=== PATIENT | female | born 2005 | race Two or more races ===

== ENCOUNTER 2025-05-21 22:25 | Emergency (ER) | payer BC, OTHER, SELFPAY ==
--- OUTSIDE RECORDS SUMMARY | 2025-05-12 19:28 | XMS_ITS | Encounter Summary ---
Author Organization [facility] tem Address [facility] [id number] [address] [place] [address] Care Team Providers Care Janitorial Account Manager Name Role Phone Nini Ahmadi MD Primary Care Provider [phone] Reason for Referral * Consultation (Routine) - Pending ReviewSpecialtyDiagnoses / ProceduresReferred By ContactReferred To ContactUrology Diagnoses Dysuria Aggie Benitez APRN-CNP [address] [place] [address] Phone: tel: fax: Dave Stephens MD [address] [place] [address] Phone: tel: fax: Referral IDStatusReasonStart DateExpiration DateVisits RequestedVisits [id number] Review Specialty Services Required Reason for Visit * ReasonCommentsPainful Urination Encounter Details DateTypeDepartmentCare Team (Latest Contact Info)Etqoihnzfxu33/20/2025 7:28 PM EDT - 05/12/2025 9:41 PM EDTEmergency [facility] [address] [place] [address] Gayle Underwood MD [address] [place] [address] Dysuria (Primary Dx) Discharge Disposition: Home Social History Tobacco UseTypesPacks/DayYears UsedDateSmoking Tobacco: NeverSmokeless Tobacco: NeverAlcohol UseStandard Drinks/WeekCommentsNo0 (1 standard drink = 0.6 oz pure alcohol)ChildcareAnswerDate KhrrlajkTvbvmndhaIdtuwkt70/10/2019EmploymentAnswer Date UdekwjwvNmknujouejHlhxyxv01/10/2019Hunger ScreeningAnswerDate Recorded Within the past 12 months we worried whether our food would run out before we got money to buy more.Never True05/12/2025Within the past 12 months the food we bought just didn't last and we didn't have money to get more.Never True 05/12/2025Purpose - LifeAnswerDate RecordedPurpose and direction in lifeUnknown 1CommentsNoSex and Gender InformationValueDate RecordedSex Assigned at BirthNot on fileLegal YzsQycgns62/04/2015 12:14 PM EDTGender IdentityNot on fileSexual OrientationNot on filedocumented as of this encounter Last Filed Vital Signs Vital SignReadingTime TakenCommentsBlood Xbjapxgo789/8705/12/2025 9:30 PM EDT Dbsad00238/20/2025 9:30 PM BAYSjzjwifbzph15.2 ??C (98.9 ??F)05/12/2025 6:17 PM EDTRespiratory Qllq9516 9:30 PM EDTOxygen Wilzlhersd09%05/12/2025 9:30 PM EDTInhaled Oxygen Concentration--Aaomxf28.5 kg (215 lb)05/12/2025 6:17 PM EDT Huohcp643 cm (5' 3 )05/12/2025 6:17 PM EDTBody Mass Index38.0905/12/2025 6:17 PM EDTdocumented in this encounter Discharge Instructions * Discharge Instructions* MARIJA Pinto - 05/12/2025 9:24 PM EDT Thank you for choosing us for your medical care. We know you have a choice, and we appreciate you choosing us for your medical concerns! You may receive a survey from the hospital about your visit. We very much appreciate your comments and concerns. Please read all medication insert instructions and side effects when dispensed by the pharmacy. Every medication has side effects, and you may experience any of them. Please call the emergency room with any questions or concerns you have. Please call your doctor for outpatient follow up and recommendations. The emergency room cannot replace ongoing care, and it is important for your personal physician to evaluate you and monitor your health. Return to the ER for increased pain, fever > 101.5, vomiting twice, or any concern you deem emergent. Aggie Benitez CNP documented in this encounter ED Notes * MARIJA Pinto - 05/12/2025 7:43 PM EDT Images from the original note were not included. [facility] - EMERGENCY Pt Name: Cheryl Cardona Birthdate: 2005 Chief Complaint: Chief Complaint Patient presents with Painful Urination History of Present Illness: Cheryl Cardona is a 19-year-old female that presents to ED with complaint of burning with urination. Patient states she has noticed an odor hand burning to her urine today. She also reports lower back and lower abdominal pain. Denies any hematuria. Denies any history of kidney stones. Denies any concerns for STIs. History provided by: Patient official court interpreter used: No Past Medical History: History reviewed. No pertinent past medical history. Past Surgical History: History reviewed. No pertinent surgical history. Family History: Family History Problem Relation Age of Onset No Known Problems Mother No Known Problems Father Social History: Social History Socioeconomic History Marital status: Tobacco Use Smoking status: Never Smokeless tobacco: Never Substance and Sexual Activity Alcohol use: No Drug use: No Sexual activity: Never Social Drivers of Health Food Insecurity: No Food Insecurity (05/12/2025) Hunger Screening Food Insecurity - Worry: Never True Food Insecurity - Inability: Never True Review of Systems: Review of Systems Constitutional: Negative for chills and fever. HENT: Negative for ear pain. Eyes: Negative for pain. Respiratory: Negative for shortness of breath. Cardiovascular: Negative for chest pain/discomfort. Gastrointestinal: Positive for abdominal pain. Negative for diarrhea, nausea and vomiting. Genitourinary: Positive for dysuria and flank pain. Musculoskeletal: Negative for back pain. Skin: Negative for rash. Neurological: Negative for headaches. Psychiatric/Behavioral: Negative for sleep disturbance and suicidal ideas. Physical Exam: ED Triage Vitals [05/12/251816] Temp Heart Rate Resp BP SpO2 37.2 ??C (98.9 ??F) (!) 112 18 (!) 114/91 100 % Temp Source Heart Rate Source Patient Position BP Location FiO2 (%) Oral -- Sitting Left arm -- Vitals: 05/12/251816 BP: (!) 114/91 Temp: 37.2 ??C (98.9 ??F) TempSrc: Oral Pulse: (!) 112 Resp: 18 SpO2: 100% MAP (mmHg): 100 Height: 160 cm (5' 3 ) Weight: 97.5 kg (215 lb) Physical Exam Vitals reviewed. HENT: Head: Normocephalic and atraumatic. Eyes: Conjunctiva/sclera: Conjunctivae normal. Cardiovascular: Rate and Rhythm: Normal rate. Pulmonary: Effort: Pulmonary effort is normal. Breath sounds: Normal breath sounds. Abdominal: General: There is no distension. Palpations: Abdomen is soft. Musculoskeletal: General: Normal range of motion. Cervical back: Normal range of motion and neck supple. Skin: General: Skin is warm and dry. Neurological: General: No focal deficit present. Mental Status: She is alert and oriented to person, place, and time. GCS: GCS eye subscore is 4. GCS verbal subscore is 5. GCS motor subscore is 6. Procedure: Procedures Re-evaluation: 2124 - labs, urine and CT are unremarkable for any acute finding. I spoke to patient and she is agreeable to follow up to family doctor. Given strict return criteria. Medical Decision Making Plan of care - labs, urine, CT to rule out kidney stone Amount and/or Complexity of Data Reviewed Labs: ordered. Decision-making details documented in ED Course. Radiology: ordered. Decision-making details documented in ED Course. ED Course: ED Course as of 05/12/252126 Mon May 12, 20252031 Patient is 19 years old female presented for urinary frequency and dysuria evaluation for the last month. Patient stated the symptoms associated with left flank pain. Patient denied hematuria, nausea, vomiting, fever, chills. Physical examination: Suprapubic tenderness [NM] ED Course User Index [NM] Gayle Underwood MD Clinical Impressions as of 05/12/252126 Dysuria . ED Disposition ED Disposition Discharge Date/Time MonMay 12, 2025 9:24 PM Comment At the time of discharge, the plan has been discussed with the patient regarding the diagnosis and prognosis. All questions have been answered. Verbal discharge instructions were discussed with the patient. The patient has been advised to follow up w ith their Primary Care Provider within 1 week. The patient was also instructed to return to the ED if their symptoms change, worsen, new symptoms arise or if they have any additional concerns. Shared/Split Visit 20:31 EDT Krupa Youngblood (scribe), scribed for and in the presence of: Gayle Underwood MD who performed the above service. I, Dr. Kj MD personally performed a eong-fr-dktu diagnostic evaluation on this patient. I personally made and approved the management plan for this patient and take responsibility for the patientmanagement. Additional Notes/Findings: Cheryl Cardona is a 19 y.o. female presenting to the ED for chief complaint of painful urination. She mentions that she has mild back pain, frequent urination, painful urination, and some abdominal pain. Her symptoms have been going on for a month. Exam findings as follows: Constitutional: Awake and alert HENT: Head normocephalic and atraumatic Eyes: conjunctiva unremarkable Cardiovascular: Heart rate regular Pulmonary: Easy work of breathing, speaking full sentences. Suprapubic tenderness Abdominal: Flat and non-distended Skin: Warm and dry Musculoskeletal: Moving all extremities spontaneously Neurological: alert and oriented 3 Please note that portions of this note were completed with a voice recognition program. Efforts were made to edit the dictations but occasionally words are mis-transcribed. MARIJA Pinto 05/12/251943 Krupa Fuller 05/12/252032 MARIJA Pinto 05/12/252126 * Ghazalahayden Matt - 05/12/2025 6:17 PM EDT Pt state she is having lower abdominal pain and lower back pain. She states it sainz when she urinates, and she has noticed an odor to her urine. documented in this encounter Plan of Treatment NameTypePriorityAssociated DiagnosesOrder ScheduleAmbulatory referral to Urology (Non-[facility])Outpatient ReferralRoutine Dysuria 1 Occurrences starting 05/12/2025 until 05/12/2026documented as of this encounter Procedures Procedure NamePriorityDate/TimeAssociated DiagnosisCommentsCT ABDOMEN AND PELVIS WO UZVLHXHO76/20/2025 7:57 PM EDT CBC WITH AUTO XDHUWPOEVSCEQTRR04/20/2025 7:49 PM EDT COMPREHENSIVE METABOLIC ASYAWERDT22/20/2025 7:49 PM EDT ER EXTRA URINE BAHVOBHCTJ72/20/2025 7:41 PM EDT ER EXTRA URINE KZFZDMCKUAI86/20/2025 7:41 PM EDT ER EXTRA FHVIRMMKL89/20/2025 7:41 PM EDT POCT , URINE (NUCG)Ekiuajx4805/12/2025 7:36 PM EDT POCT NURSING URINE MACROSCOPIC TXNffgeei51/20/2025 7:35 PM EDT documented in this encounter Results * CT abdomen and pelvis without contrast (05/12/2025 7:57 PM EDT)Anatomical RegionLateralityModalityBody, Abdomen, Body CoveraN/AComputed Tomography Specimen (Source)Anatomical Location / LateralityCollection Method / Volume Collection TimeReceived Time05/12/2025 9:06 PM EDT Narrative 05/12/2025 9:10 PM EDT History: ??r/o kidney stone. Exam/Technique: CT images of abdomen and pelvis were obtained without IV contrast. ??CT does automated exposure control was utilized. All CT scans at this facility use dose modulation, iterative reconstruction, and/or weight based dosing when appropriate to reduce radiation dose to as low as reasonably achievable. Comparison: ??None is available Findings: ??Lung bases are grossly unremarkable Both kidneys are of adequate and similar size and texture with no gross hydronephrosis or renal cyst. Urinary bladder is decompressed. Uterus is grossly unremarkable. There is coarse heterogeneous texture of the liver parenchyma likely due to diffuse hepatic steatosis. Gallbladder is partially contracted. Spleen, pancreas and adrenal glands are unremarkable. Appendix, small and large bowel loops are unremarkable. There is no free peritoneal air or fluid. There are few nonspecific mesenteric lymph nodes likely on reactive basis. There is focal 7 mm sclerotic density of the right sacral alar favored to represent bone island. However, other etiology cannot be entirely excluded. IMPRESSION: ?? There is no gross acute intra-abdominal or pelvic process. Moderate hepatic steatosis. No hydronephrosis or dense renal stones Finalized by Eric Vaughan MD on 05/12/2025 9:10 PM Procedure Note Eric Vaughan MD - 05/12/2025 History: r/o kidney stone. Exam/Technique: CT images of abdomen and pelvis were obtained without IV contrast. CT does automated exposure control was utilized. All CT scansat this facility use dose modulation, iterative reconstruction, and/orweight based dosing when appropriate to reduce radiation dose to as low as reasonably achievable. Comparison: None is available Findings: Lung bases are grossly unremarkable Both kidneys are of adequate and similar size and texture with no gross hydronephrosis or renal cyst. Urinary bladder is decompressed. Uterus is grossly unremarkable. There is coarse heterogeneous texture of the liver parenchyma likely dueto diffuse hepatic steatosis. Gallbladder is partially contracted. Spleen,pancreas and adrenal glands are unremarkable. Appendix, small and large bowel loops are unremarkable. There is no free peritoneal air or fluid. There are few nonspecific mesenteric lymph nodeslikely on reactive basis. There is focal 7 mm sclerotic density of the right sacral alar favored to represent bone island. However, other etiology cannot be entirelyexcluded. IMPRESSION: There is no gross acute intra-abdominal or pelvic process. Moderate hepatic steatosis. No hydronephrosis or dense renal stones Finalized by Eric Vaughan MD on 05/12/2025 9:10 PM Authorizing ProviderResult TypeResult StatusAmber Benitez DRIER BELT CONVEYOR-CNPIMG CT ORDERABLESFinal Result * (ABNORMAL) Comprehensive metabolic panel (05/12/2025 7:49 PM EDT)Component ValueRef RangeTest MethodAnalysis TimePerformed AtPathologist SignatureSODIUM 641591 - 146 mmol/L1 8:22 PM [facility] POTASSIUM3.83.5 - 5.0 mmol/L1 8:22 PM EDTR[facility]OSPITALCHLORIDE10498 - 109 mmol/L1 8:22 PM EDTR[facility]OSPITALCARBON BZHNPGA4761 - 32 mmol/L1 8:22 PM EDTR[facility]ITALANION DJT562 - 15 mmol/L1 8:22 PM EDT [facility]ITALBLOOD UREA ADWVREIF72 - 23 mg/dL05/12/2025 8:22 PM EDTRIHE[facility]ITAN HOSPITALCREATININE0.670.40 - 1.00 mg/dL 05/12/2025 8:22 PM [facility] HOSPITALComment:METHOD TRACEABLE TO IDMS KSHVTIRMIGGEZVW282(H)65 - 99 mg/dL05/12/2025 8:22 PM EDT [facility]ITALCALCIUM9.08.5 - 10.5 mg/dL05/12/2025 8:22 PM [facility]OS[facility]ITALTOTAL PROTEIN7.86.0 - 8.0 g/dL 05/12/2025 8:22 PM EDTR[facility]HE[facility]AN HOSPITALALBUMIN4.33.2 - 5.3 g/dL05/12/2025 8:22 PM [facility] HOSPITALALKALINE OVYMJKBDIWM8385 - 130 U/L1 8:22 PM [facility]ITALAST32<=41 U/L1 8:22 PM [facility] ALT51(H)<=31 U/L1 8:22 PM [facility] BILIRUBIN,TOTAL0.30.3 - 1.2 mg/dL05/12/2025 8:22 PM [facility] GALION HOSPITALEGFR Non-Race Dependent>90>=60 ml/min/1.73sq.m1 8:22 PM [facility] HOSPITALComment: eGFR not reported due to non-numeric value for Creatinine. Reported eGFR is based on the CKD-EPI 2020 equation that does not use a race coefficient. Specimen (Source)Anatomical Location / LateralityCollection Method / Volume Collection TimeReceived TimeBloodVenous blood / UnknownVenipuncture / Unknown 05/12/2025 7:49 PM EDT1 7:58 PM EDT Narrative Authorizing ProviderResult TypeResult StatusAmber Emmanuel DRIER BELT CONVEYOR-CNPLAB BLOOD ORDERABLESFinal ResultPerforming OrganizationAddressCity/State/ZIP CodePhone Number [facility] [address] * (ABNORMAL) CBC auto differential (05/12/2025 7:49 PM EDT)ComponentValueRef RangeTest MethodAnalysis TimePerformed AtPathologist SignatureWBC9.34 - 11 x10E9/L1 8:05 PM [facility]AL[facility] HOSPITALRBC Count4.48 3.8 - 5.2 X10E12/L1 8:05 PM [facility] Mgeixmqaeg67.811.7 - 15.5 g/dL05/12/2025 8:05 PM [facility]AL[facility] HOSPITALHematocrit38.235 - 47 %05/12/2025 8:05 PM [facility] HOSPITALMCV8580 - 100 fL05/12/2025 8:05 PM [facility] HOSPITALMCH28.527 - 34 pg05/12/2025 8:05 PM [facility] HOSPITALMCHC33.532 - 36 g/dL05/12/2025 8:05 PM [facility]AL[facility] HOSPITALRDW13.011.5 - 15 %05/12/2025 8:05 PM EDTRIHEALTH GOOD SAMARITAN HOSPITALPlatelet Syvmy658300 - 450 X10E9/L1 8:05 PM EDT [facility]ITALMPV9.17 - 12 fL05/12/2025 8:05 PM EDT [facility]ITALNeutrophils %72.5%05/12/2025 8:05 PM EDT [facility]ITALLymphocytes %19.1%05/12/2025 8:05 PM EDT [facility]ITALMonocytes %6.6%05/12/2025 8:05 PM EDT [facility] HOSPITALEosinophils %1.1%05/12/2025 8:05 PM EDT [facility]ITALBasophils %0.7%05/12/2025 8:05 PM EDT [facility]ITALNeutrophils Absolute (A)6.7(H)1.5 - 6.6 10*3/uL05/12/2025 8:05 PM EDTRIHEALTH GOOD SAMARITAN HOSPITALLymphocytes Absolute1.81.0 - 3.5 10*3/uL05/12/2025 8:05 PM EDMER[facility] HOSPITALMonocytes Absolute0.60.0 - 0.9 10*3/uL05/12/2025 8:05 PM EDTRIHEALTH GOOD SAMARITAN HOSPITALEosinophils Absolute0.10.0 - 0.4 10*3/uL05/12/2025 8:05 PM EDTPADENA REGIONAL MEDICAL CENTERBasophils Absolute0.10.0 - 0.2 10*3/uL05/12/2025 8:05 PM EDTRIHEALTH GOOD SAMARITAN HOSPITALDifferential TypeAUTOMATED SHZJPPWFJOBI41/20/2025 8:05 PM [facility] SYSTEMpecimen (Source)Anatomical Location / LateralityCollection Method / VolumeCollection TimeReceived TimeBloodVenous blood / UnknownVenipuncture / Lismmjl3705/12/2025 7:49 PM EDT1 7:58 PM EDT Narrative Authorizing ProviderResult TypeResult StatusAmber Emmanuel DRIER BELT CONVEYOR-CNPLAB BLOOD ORDERABLESFinal ResultPerforming OrganizationAddressCity/State/ZIP CodePhone Number [address] [place] [address], [place] * ER EXTRA URINE MARBLE (05/12/2025 7:41 PM EDT)ComponentValueRef RangeTest MethodAnalysis TimePerformed AtPathologist SignatureExtra TubeAuto Resulted 05/12/2025 11:02 PM EDTPBrecksville [facility] (Source) Anatomical Location / LateralityCollection Method / VolumeCollection Time Received TimeUrineUrine / UnknownCollection / Cceijmv6905/12/2025 7:41 PM EDT 05/12/2025 10:07 PM EDT Narrative Authorizing ProviderResult TypeResult StatusAmber Emmanuel DRIER BELT CONVEYOR-CNPURINE ORDERABLESFinal ResultPerforming OrganizationAddressCity/State/ZIP CodePhone Number [address] [place] [address], [place] * ER EXTRA URINE CULTURE (05/12/2025 7:41 PM EDT)ComponentValueRef RangeTest MethodAnalysis TimePerformed AtPathologist SignatureExtra TubeAuto Resulted 05/12/2025 11:02 PM EDAult[facility] (Source) Anatomical Location / LateralityCollection Method / VolumeCollection Time Received TimeUrineUrine / UnknownCollection / Jhvrnga4605/12/2025 7:41 PM EDT 05/12/2025 10:07 PM EDT Narrative Authorizing ProviderResult TypeResult StatusAmber Emmanuel DRIER BELT CONVEYOR-CNPURINE ORDERABLESFinal ResultPerforming OrganizationAddressty/State/ZIP CodePhone Number [address] [place] [address], [place] * Er Extra Urine (05/12/2025 7:41 PM EDT)ComponentValueRef RangeTest Method Analysis TimePerformed AtPathologist SignatureExtra TubeAuto Resulted 05/12/2025 11:02 PM EDTPBrecksville [facility] (Source) Anatomical Location / LateralityCollection Method / VolumeCollection Time Received TimeUrineUrine / UnknownCollection / Utikdou0905/12/2025 7:41 PM EDT 05/12/2025 10:07 PM EDT Narrative Authorizing ProviderResult TypeResult StatusAmber Benitez DRIER BELT CONVEYOR-CNPURINE ORDERABLESFinal ResultPerforming OrganizationAddressCity/State/ZIP CodePhone Number [address] [place] [address], [place] * POCT , urine (05/12/2025 7:36 PM EDT)ComponentValueRef RangeTest MethodAnalysis TimePerformed AtPathologist SignaturePO Urine NegativeNegative, Jpbsjvbqbhryk01/20/2025 7:41 PM EDTPUNIVERSITY HOSPITALS BEACHWOOD MEDICAL CENTERpecimen (Source)Anatomical Location / LateralityCollection Method / VolumeCollection TimeReceived UbiyCfozp89/20/2025 7:36 PM EDT 05/12/2025 7:41 PM EDT Narrative Authorizing ProviderResult TypeResult StatusPOINT OF CARE TEST ORDERABLESFinal ResultPerforming OrganizationAddressCity/State/ZIP CodePhone Number [address] [place] [address], [place] * POCT Nursing Urine Macroscopic UA (05/12/2025 7:35 PM EDT)ComponentValueRef RangeTest MethodAnalysis TimePerformed AtPathologist SignatureVERMONT PS[facility]ATR[facility] Urine Specific Gravity1.0201.010, 1.015, 1.020, 1.0111505/12/2025 7:36 PM EDTPTRIHEALTH [facility] Urine Leukocyte EsteraseNegativeNegative 05/12/2025 7:36 PM EDTPTRIHEALTH [facility] Urine Nitrite JirdemwqZoxznyzd31/20/2025 7:36 PM EDTPTRIHEALTH [facility] Urine pH7.05.0, 6.0, 6.5, 7.0, 7.5, 8.0, 8.5, 5.510 7:36 PM EDT [facility] Urine OzondnxEfdvlsbaSipmwbjx36/20/2025 7:36 PM EDTPTRIHEALTH [facility] Urine GlucoseNegative Uzodbxfn72/20/2025 7:36 PM EDTPTRIHE[facility] Urine XthtaaeSusblelqBizonfdi90/20/2025 7:36 PM [facility] Urine Urobilinogen0.2 E.U./dL05/12/2025 7:36 PM EDTPTRIHEALTH [facility] Urine VnvhxlqvlWwiftjwwXlttvfhf99/20/2025 7:36 PM EDMEM[facility] Urine Blood/HGBNegativeNegative 05/12/2025 7:36 PM EDSELECT MEDICAL SPECIALTY HOSPITAL - CANTONpecimen (Source) Anatomical Location / LateralityCollection Method / VolumeCollection Time Received CrpuLqpti51/20/2025 7:35 PM EDT1 7:36 PM EDT Narrative Authorizing ProviderResult TypeResult StatusPOINT OF CARE TEST ORDERABLESFinal ResultPerforming OrganizationAddressCity/State/ZIP CodePhone Number [facility] [address] [place], [place] [address] documented in this encounter Visit Diagnoses Diagnosis Dysuria- Primary documented in this encounter Additional Health Concerns AssessmentNoted TimeA Body Mass Index follow-up plan has been documented for the dqlgyjt0002/22/2019 10:07 AM EDTdocumented as of this encounter Care Teams Team MemberRelationshipSpecialtyStart DateEnd Date Nini Ahmadi MD [address] [place] [address] PCP - GeneralFamily Byjlbnse38/20/25documented as of this encounter
[2025-05-21 22:31] VITALS: BP 113/70; PULSE 137; TEMP 39.4; O2SAT 98; BMI 38.1
--- NOTE | 2025-05-21 22:43 | XR_ITS ---
The [address] [address] Patient Name: GEREMIAS LOPEZ MRN: [id number] date: 2005 Sex: F Assigned Patient Location: ER Current Patient Location: ED.MAIN Accession/Order Number: [id number] Exam Date: 05/21/2025 22:51 Report Date: 05/21/2025 23:09 At the request of: RANJIT GOODE MD Procedure: XR chest 1V PA CHEST: CLINICAL HISTORY: cough COMPARISON: None Unremarkable cardiomediastinal silhouette. Lungs are clear. No effusion or pneumothorax. XR/XR chest 1V IMPRESSION: Negative acute pleural-parenchymal disease. Impression dictated by: Evan Hall M.D. 05/21/2025 11:09 PM Dictation Location: [place] [address] Electronically authenticated by: [id number] Y Date: 05/21/2025 23:09
--- NOTE | 2025-05-21 22:45 | ED_ITS ---
HPI HPI - General Adult General Chief complaint: Upper Respiratory Infection Stated complaint: FEVER ALL DAY, SORE THROAT, CHILLS, RUNNY NOSE Time Seen by Provider: 05/21/25 22:40 Mode of arrival: walk-in History of Present Illness HPI narrative: ill since yesterday. sore throat continues but was worse yesterday. Has dry cough. Chest sore when she coughs. Not short of breath. no abdominal pain or GI symptoms. no skin rash.last took tylenol at 1pm Related Data Allergies Allergy/AdvReac Type Severity Reaction Status Date / Time No Known Drug Allergies Allergy Verified 05/21/25 22:36 Opioid HPI Opioid Management Most Recent Opioid Data: Last Pain Scale 5 05/21/25, 22:31 Last SEP Pain Assessment 05/22/25, 00:08 Review of Systems ROS Status of ROS 10 or more systems reviewed and unremark able except as noted in history and below PFSH PFSH Social History Little interest or pleasure in doing things: not at all Feeling down, depressed, or hopeless: not at all Exam Constitutional Vital Signs, click to edit/add: Last Vital Signs Temp 98.4 F 05/22/25 02:12 Pulse 103 H 05/22/25 02:12 Resp 18 05/22/25 02:12 BP 120/65 05/22/25 02:12 Pulse Ox 94 L 05/22/25 02:12 O2 Del Method Room Air 05/21/25 22:31 Common normals: no apparent distress, average body habitus, oriented x3, no limitations, healthy appearing, alert and well nourished [facility] Common normals: normocephalic and head/scalp atraumatic Other: mild erythema of oral pharynx. no exudates Eye Common normals: PERRL and EOMs intact bilaterally Respiratory Common normals: normal respiratory effort, no retractions, no use of accessory muscles and clear to auscultation bilaterally Cardio Common normals: regular rate, regular rhythm, S1 normal heart sound and S2 normal heart sound GI Common normals: Normal to inspection, nondistended, normoactive bowel sounds present, soft to palpation and non-tender Extremity Common normals: normal to inspection and full ROM Neuro Common normals: oriented x3, CN's II-XII intact bilaterally, moves all extremities and no focal motor deficits Psych Appearance: grossly normal Course Vital Signs Vital signs: Vital Signs Temperature 103 F H 05/21/25 22:31 Pulse Rate 137 H 05/21/25 22:31 Respiratory Rate 22 H 05/21/25 22:31 Blood Pressure 113/70 05/21/25 22:31 Pulse Oximetry 98 05/21/25 22:31 Oxygen Delivery Method Room Air 05/21/25 22:31 Temperature 98.4 F 05/22/25 02:12 Pulse Rate 103 H 05/22/25 02:12 Respiratory Rate 18 05/22/25 02:12 Blood Pressure 120/65 05/22/25 02:12 Pulse Oximetry 94 L 05/22/25 02:12 Oxygen Delivery Method Room Air 05/21/25 22:31 Medical Decision Making MDM Narrative Medical decision making narrative: patient presents with cough, not short of breath, sore throat. Exam unremarkable. does have fever and tachycardia. cxray clear. IV fluids ordered. Influenza is positive and UA with evidence of dehydration and pyuria. cx ordered. Patient given IV rocephin Lab Data Labs: Lab Results 05/21/25 05/21/25 Range/Units 22:39 22:50 Urine Color Yellow (YELLOW) Urine Clarity Clear (CLEAR) Urine pH 5.5 (5.0-9.0) Ur Specific [place] >=1.030 A (1.005-1.025) Urine Protein Negative (NEG/TRACE) mg/dL Urine Glucose (UA) Negative (NEGATIVE) mg/dL Urine Ketones Trace A (NEGATIVE) mg/dL Urine Occult Blood Negative (NEGATIVE) Urine Nitrite Negative (NEGATIVE) Urine Bilirubin Negative (NEGATIVE) Urine Urobilinogen 0.2 (0.2-1.0) EU/dL Ur Leukocyte Esterase Negative (NEGATIVE) Urine RBC 0-2 (0-2) #/HPF Urine WBC 2-5 A (NONE SEEN) #/HPF Ur Squamous Epith Cells Few A (NONE/RARE) #/LPF Urine Crystals None seen (None Seen) #/HPF Urine Bacteria Moderate A (NONE SEEN) #/HPF Urine Casts None seen (NONE SEEN) #/LPF Urine Mucus None seen (NONE SEEN) Ur Culture Indicated? [place] [place] Influenza Type A Ag Positive A Influenza Type B Ag Negative SARS-CoV-2 Ag (CV2AG) Negative (NEGATIVE) Streptococcus Screen Negative Discharge Plan Discharge Chief Complaint: Upper Respiratory Infection Clinical Impression: Influenza, UTI (urinary tract infection) Patient Disposition: Home, Self-Care Print Language: Northern Irish Instructions: Urinary Tract Infection in Women (ED), Influenza (ED) Referrals: Physician,Non-Staff, MD [Primary Care Provider] - 1 week Discharge Date/Time: 05/22/25 02:28
--- OUTSIDE RECORDS SUMMARY | 2025-05-21 22:57 | XMS_ITS | Encounter Summary ---
Author Organization [employer] s tem Address [id number] [address] [place] [address] Care Team Providers Care Tan Room Supervisor Name Role Phone Nini Ahmadi MD Primary Care Provider [phone] Encounter Details DateTypeDepartmentCare Team (Latest Contact Info)Yewwizosgnv78/20/2025Travel Social History Tobacco UseTypesPacks/DayYears UsedDateSmoking Tobacco: NeverSmokeless Tobacco: NeverAlcohol UseStandard Drinks/WeekCommentsNo0 (1 standard drink = 0.6 oz pure alcohol)ChildcareAnswerDate HvjwrkunPbzzelzjsBwjaquj89/10/2019EmploymentAnswer Date XigdcqtrFphwciyfowKxfashr94/10/2019Hunger ScreeningAnswerDate Recorded Within the past 12 months we worried whether our food would run out before we got money to buy more.Never True05/12/2025Within the past 12 months the food we bought just didn't last and we didn't have money to get more.Never True 05/12/2025Purpose - LifeAnswerDate RecordedPurpose and direction in lifeUnknown 1CommentsNoSex and Gender InformationValueDate RecordedSex Assigned at BirthNot on fileLegal FvuUkqbqb81/04/2015 12:14 PM EDTGender IdentityNot on fileSexual OrientationNot on filedocumented as of this encounter Plan of Treatment Not on file documented as of this encounter Visit Diagnoses Not on filedocumented in this encounter Additional Health Concerns AssessmentNoted TimeA Body Mass Index follow-up plan has been documented for the nxdkcue7802/22/2019 10:07 AM EDTdocumented as of this encounter Care Teams Team MemberRelationshipSpecialtyStart DateEnd Date Nini Ahmadi MD [address] [place] [address] PCP - GeneralFamily Gksvhmyv62/20/25documented as of this encounter
--- OUTSIDE RECORDS SUMMARY | 2025-05-21 22:57 | XMS_ITS | Clinical Summary ---
Author Organization [facility] [employer] [facility] tem Address [id number] [place] [address] Care Team Providers Care Tank Truck Milk Receiver Name Role Phone Nini Ahmadi MD Primary Care Provider [phone] Allergies No known active allergies Medications No known medications Active Problems No known active problems Encounters DateTypeDepartmentCare LzsjNbrkydrkiow42/20/2025 7:28 PM EDT - 05/12/2025 9:41 PM EDTEmergency [facility] [address] [place] [address] Gayle Underwood MD Dysuria (Primary Dx) Discharge Disposition: Home05/12/2025Travelfrom Last 3 Months Immunizations ImmunizationAdministration DatesNext EdcAWL9009/20/2006DTaP / Hep B / IPV 09/02/2005,06/24/2005DTaP / IPV02/18/2010DTaP, Vockrxnitxk98/05/2175O8W8 Inj Preservative Free07/28/2009HPV Ccztgxwxflfn77/06/2840OKM105/05/2017,03/02/2016 Hep A, 2 Dose04/10/2014,02/18/2010Hep B, Adolescent or Ooozulefl17/05/2005, 2004HiB02/25/2005Hib (PRP-T)02/03/2006,09/02/2005,06/24/2005Influenza Whole04/27/2009Influenza, Im Trivalent Zwxkckdeynlf13/30/6321OCU7109/20/2006, 02/03/2006Meningococcal B, Omv12/23/2020Meningococcal Tojydvius26/02/2021, 03/02/2016Pneumococcal Lwtigzilq48/01/2008,09/02/2005,06/24/2005,02/25/2005 Polio, Fbhdjakdhiz41/05/3593Ocok15/10/5141Hknixysfu90/29/2010,02/03/2006 Family History Medical HistoryRelationNameCommentsNo Known ProblemsFatherNo Known Problems MotherRelationNameStatusCommentsFatherAliveMotherAlive Social History Tobacco UseTypesPacks/DayYears UsedDateSmoking Tobacco: NeverSmokeless Tobacco: Never Tobacco Cessation:Counseling Given: Yes Alcohol UseStandard Drinks/WeekCommentsNo0 (1 standard drink = 0.6 oz pure alcohol)ChildcareAnswerDate EphvkblzPvpgkmbwoDpvueqb74/10/2019EmploymentAnswer Date PxxbrmvvMlqmmhjxtlWociqux92/10/2019Hunger ScreeningAnswerDate Recorded Within the past 12 months we worried whether our food would run out before we got money to buy more.Never True05/12/2025Within the past 12 months the food we bought just didn't last and we didn't have money to get more.Never True 05/12/2025Purpose - LifeAnswerDate RecordedPurpose and direction in lifeUnknown 1CommentsNoSex and Gender InformationValueDate RecordedSex Assigned at BirthNot on fileLegal KqgDucnyn35/04/2015 12:14 PM EDTGender IdentityNot on fileSexual OrientationNot on file Last Filed Vital Signs Vital SignReadingTime TakenCommentsBlood Kyskgkex219/8710 9:30 PM EDT Shkqc65280/20/2025 9:30 PM EGMTkrjisksogt16.2 ??C (98.9 ??F)05/12/2025 6:17 PM EDTRespiratory Jxfr1565 9:30 PM EDTOxygen Lxoetnogos64%05/12/2025 9:30 PM EDTInhaled Oxygen Concentration--Johwfq49.5 kg (215 lb)05/12/2025 6:17 PM EDT Gfjzsj961 cm (5' 3 )05/12/2025 6:17 PM EDTBody Mass Index38.0905/12/2025 6:17 PM EDT Plan of Treatment Health MaintenanceDue DateLast DoneCommentsDepression Mwdlkshsm71/15/2017Adult BMI Follow Up Plan2022Influenza Aryztdi01/, 07/28/2009, 04/27/2009DTaP,Tdap and Td Vaccines (7 - Td or Tdap)/04/2016, 02/18/2010, 09/20/2006, Additional history existsAdult BMI Qhjhsyiuq26/20/2026 05/12/2025Tobacco Ksyqebyox17 Medical Devices Not on file Procedures Procedure NamePriorityDate/TimeAssociated DiagnosisCommentsCT ABDOMEN AND PELVIS WO YUEZSXFL35/20/2025 7:57 PM EDT COMPREHENSIVE METABOLIC UMAAIHWXF08/20/2025 7:49 PM EDT CBC WITH AUTO BGUJREFWRJPRCGUZ53/20/2025 7:49 PM EDT ER EXTRA URINE NDVIHJUNPR81/20/2025 7:41 PM EDT ER EXTRA URINE KRPSKVOKOIQ59/20/2025 7:41 PM EDT ER EXTRA RPRZLWCZH34/20/2025 7:41 PM EDT POCT , URINE (NUCG)Vzcinms1505/12/2025 7:36 PM EDT POCT NURSING URINE MACROSCOPIC OEVmexdky26/20/2025 7:35 PM EDT from Last 3 Months Results * CT abdomen and pelvis without [...] 9:10 PM Authorizing ProviderResult TypeResult StatusAmber Benitez HEARING STENOGRAPHER-CNPIMG CT ORDERABLESFinal Result * (ABNORMAL) CBC auto differential (05/12/2025 7:49 PM EDT)ComponentValueRef RangeTest MethodAnalysis TimePerformed AtPathologist SignatureWBC9.34 - 11 x10E9/L1 8:05 PM EDFLOWER HOSPITALRBC Count4.48 3.8 - 5.2 X10E12/L1 8:05 PM [facility] Qgxogmlkpd51.811.7 - 15.5 g/dL05/12/2025 8:05 PM [facility]ITALHematocrit38.235 - 47 %05/12/2025 8:05 PM EDTPMERCY HEALTH CLERMONT HOSPITALMCV8580 - 100 fL05/12/2025 8:05 PM EDFLOWER HOSPITALMCH28.527 - 34 pg05/12/2025 8:05 PM EDFLOWER HOSPITALMCHC33.532 - 36 g/dL05/12/2025 8:05 PM EDFLOWER HOSPITALRDW13.011.5 - 15 %05/12/2025 8:05 PM EDFLOWER HOSPITALPlatelet Wvjau395950 - 450 X10E9/L1 8:05 PM EDT [facility]MPV9.17 - 12 fL05/12/2025 8:05 PM EDT [facility]ENTERNeutrophils %72.5%05/12/2025 8:05 PM EDT [facility]ENTERLymphocytes %19.1%05/12/2025 8:05 PM EDT [facility]ENTERMonocytes %6.6%05/12/2025 8:05 PM EDT [facility]ENTEREosinophils %1.1%05/12/2025 8:05 PM EDT [facility]ENTERBasophils %0.7%05/12/2025 8:05 PM EDT [facility]ENTERNeutrophils Absolute (A)6.7(H)1.5 - 6.6 10*3/uL05/12/2025 8:05 PM EDTPMERCY HEALTH CLERMONT HOSPITALLymphocytes Absolute1.81.0 - 3.5 10*3/uL05/12/2025 8:05 PM EDFLOWER HOSPITALMonocytes Absolute0.60.0 - 0.9 10*3/uL05/12/2025 8:05 PM EDFLOWER HOSPITALEosinophils Absolute0.10.0 - 0.4 10*3/uL05/12/2025 8:05 PM EDFLOWER HOSPITALBasophils Absolute0.10.0 - 0.2 10*3/uL05/12/2025 8:05 PM [facility]ITALDifferential TypeAUTOMATED UONKAMDSXJVM98/20/2025 8:05 PM [facility] PREBLEpecimen (Source)Anatomical Location / LateralityCollection Method / VolumeCollection TimeReceived TimeBloodVenous blood / UnknownVenipuncture / Occtydd2305/12/2025 7:49 PM EDT1 7:58 PM EDT Narrative Authorizing ProviderResult TypeResult StatusAmber Emmanuel HEARING STENOGRAPHER-CNPLAB BLOOD ORDERABLESFinal ResultPerforming OrganizationAddressCity/State/ZIP CodePhone Number [facility] [address] [place] [address], * (ABNORMAL) Comprehensive metabolic panel (05/12/2025 7:49 PM EDT)Component ValueRef RangeTest MethodAnalysis TimePerformed AtPathologist SignatureSODIUM 987043 - 146 mmol/L1 8:22 PM EDTPMERCY HEALTH CLERMONT HOSPITAL POTASSIUM3.83.5 - 5.0 mmol/L1 8:22 PM [facility]OS[facility]ITALCHLORIDE10498 - 109 mmol/L1 8:22 PM [facility] HOSPITALCARBON RPSEBLC7139 - 32 mmol/L1 8:22 PM [facility] HOSPITALANION DEE022 - 15 mmol/L1 8:22 PM EDT [facility]ENTERBLOOD UREA WCZMNVIW18 - 23 mg/dL05/12/2025 8:22 PM [facility]OS[facility]ITALCREATININE0.670.40 - 1.00 mg/dL 05/12/2025 8:22 PM [facility]ITALComment:METHOD TRACEABLE TO IDMS SRRTALPDLXNMEMJ108(H)65 - 99 mg/dL05/12/2025 8:22 PM EDT [facility] CENTERCALCIUM9.08.5 - 10.5 mg/dL05/12/2025 8:22 PM [facility]OS[facility]ITALTOTAL PROTEIN7.86.0 - 8.0 g/dL 05/12/2025 8:22 PM [facility]OSPITALALBUMIN4.33.2 - 5.3 g/dL05/12/2025 8:22 PM [facility]OS[facility]ITALALKALINE PQGXNRENASG6244 - 130 U/L1 8:22 PM [facility]AST32<=41 U/L1 8:22 PM [facility] ALT51(H)<=31 U/L1 8:22 PM [facility] BILIRUBIN,TOTAL0.30.3 - 1.2 mg/dL05/12/2025 8:22 PM [facility]CT[facility] HOSPITALEGFR Non-Race Dependent>90>=60 ml/min/1.73sq.m1 8:22 PM [facility]ITALComment: eGFR not reported due to non-numeric value for Creatinine. Reported eGFR is based on the CKD-EPI 2020 equation that does not use a race coefficient. Specimen (Source)Anatomical Location / LateralityCollection Method / Volume Collection TimeReceived TimeBloodVenous blood / UnknownVenipuncture / Unknown 05/12/2025 7:49 PM EDT1 7:58 PM EDT Narrative Authorizing ProviderResult TypeResult StatusAmber Emmanuel RODRIGUEZN-CNPLAB BLOOD ORDERABLESFinal ResultPerforming OrganizationAddressCity/State/ZIP CodePhone Number [address] [place] [address], [place] * ER EXTRA URINE MAR[place] (05/12/2025 7:41 PM EDT)ComponentValueRef RangeTest MethodAnalysis TimePerformed AtPathologist SignatureExtra TubeAuto Resulted 05/12/2025 11:02 PM EDTPNationwide Children's Hospitaln (Source) Anatomical Location / LateralityCollection Method / VolumeCollection Time Received TimeUrineUrine / UnknownCollection / Hhpgatb2805/12/2025 7:41 PM EDT 05/12/2025 10:07 PM EDT Narrative Authorizing ProviderResult TypeResult StatusAmber Emmanuel HEARING STENOGRAPHER-CNPURINE ORDERABLESFinal ResultPerforming OrganizationAddressCity/State/ZIP CodePhone Number [address] [place] [address], [place] * ER EXTRA URINE CULTURE (05/12/2025 7:41 PM EDT)ComponentValueRef RangeTest MethodAnalysis TimePerformed AtPathologist SignatureExtra TubeAuto Resulted 05/12/2025 11:02 PM EDH[facility] (Source) Anatomical Location / LateralityCollection Method / VolumeCollection Time Received TimeUrineUrine / UnknownCollection / Ngcuvfy2305/12/2025 7:41 PM EDT 05/12/2025 10:07 PM EDT Narrative Authorizing ProviderResult TypeResult StatusAmber Emmanuel HEARING STENOGRAPHER-CNPURINE ORDERABLESFinal ResultPerforming OrganizationAddressCity/State/ZIP CodePhone Number [address] [place] [address], [place] * Er Extra Urine (05/12/2025 7:41 PM EDT)ComponentValueRef RangeTest Method Analysis TimePerformed AtPathologist SignatureExtra TubeAuto Resulted 05/12/2025 11:02 PM EDTPPeoples Hospital (Source) Anatomical Location / LateralityCollection Method / VolumeCollection Time Received TimeUrineUrine / UnknownCollection / Nplkfwy4705/12/2025 7:41 PM EDT 05/12/2025 10:07 PM EDT Narrative Authorizing ProviderResult TypeResult StatusAmber Benitez HEARING STENOGRAPHER-CNPURINE ORDERABLESFinal ResultPerforming OrganizationAddressty/State/ZIP CodePhone Number [address] [place] [address], [place] * POCT , urine (05/12/2025 7:36 PM EDT)ComponentValueRef RangeTest MethodAnalysis TimePerformed AtPathologist SignaturePO Urine NegativeNegative, Kfqscjshgqdhe74/20/2025 7:41 PM EDH[facility] Hospital (Source)Anatomical Location / LateralityCollection Method / VolumeCollection TimeReceived UrzySjemj18/20/2025 7:36 PM EDT 05/12/2025 7:41 PM EDT Narrative Authorizing ProviderResult TypeResult StatusPOINT OF CARE TEST ORDERABLESFinal ResultPerforming OrganizationAddressParkview Health/[facility]/ZIP CodePhone Number [address] [place] [address], [place] * POCT Nursing Urine Macroscopic UA (05/12/2025 7:35 PM EDT)ComponentValueRef RangeTest MethodAnalysis TimePerformed AtPathologist SignaturePOC Urine Specific Gravity1.0201.010, 1.015, 1.020, 1.0522905/12/2025 7:36 PM EDTPUN[facility] Urine Leukocyte EsteraseNegativeNegative 05/12/2025 7:36 PM EDTPUN[facility] Urine Nitrite BymywrhoNmrfpqfh16/20/2025 7:36 PM EDTPUNIVERS[facility] Urine pH7.05.0, 6.0, 6.5, 7.0, 7.5, 8.0, 8.5, 5. 7:[address] [facility] Urine MdtmefiTocypnpxXrdoadgx78/20/2025 7:36 PM [facility] Urine GlucoseNegative Jireujwy67/20/2025 7:36 PM EDLA[facility] Urine DeudykuDewrjeajEaizaioy83/20/2025 7:36 PM EDLA[facility] Urine Urobilinogen0.2 E.U./dL05/12/2025 7:36 PM EDTPUN[facility] Urine ZyljplswhLqrdrswjDkhkcdic51/20/2025 7:36 PM EDLA[facility] Urine Blood/HGBNegativeNegative 05/12/2025 7:36 PM EDGREENE MEMORIAL HOSPITALpecimen (Source) Anatomical Location / LateralityCollection Method / VolumeCollection Time Received WdduYlmvv84/20/2025 7:35 PM EDT1 7:36 PM EDT Narrative Authorizing ProviderResult TypeResult StatusPOINT OF CARE TEST ORDERABLESFinal ResultPerforming OrganizationAddressCity/State/ZIP CodePhone Number [facility] [address] [place] [address], from Last 3 Months Insurance Care Teams Team MemberRelationshipSpecialtyStart DateEnd Date Nini Ahmadi MD [address] [place] [address] [facility] Enoxlusk76/20/[facility]
[2025-05-21 23:00] LABS: SARS-CoV-2 Ag NEGATIVE (NEGATIVE)
[2025-05-21] MEDS: IBUPROFEN 400 MG TABLET 800 MG PO (23:16)
[2025-05-21] MEDS: 0.9 % SODIUM CHLORIDE 1,000 ML 999 ML IV (23:16)
[2025-05-21 23:18] LABS: Glucose Urine UA NEGATIVE (NEGATIVE)
[2025-05-21 23:26] LABS: Cast Seen? NONE SEEN #/LPF (NONE SEEN); Crystals Seen? None Seen #/HPF (None Seen); Urine Culture Indicated YES-FRMC
--- NOTE | 2025-05-21 23:31 | PC.NURSE ---
Nurse interns and two RNs attempted to get a blood draw. IV established but blood unable to be obtained. Physician notified.
[2025-05-21 23:58] VITALS: PULSE 121; TEMP 39.2; O2SAT 97
[2025-05-22] MEDS: ACETAMINOPHEN 500 MG TABLET 1000 MG PO (00:08)
[2025-05-22 01:07] VITALS: BP 109/65; PULSE 117; TEMP 38.7; O2SAT 94
[2025-05-22] MEDS: 0.9 % SODIUM CHLORIDE 1,000 ML 999 ML IV (01:10)
[2025-05-22 02:12] VITALS: BP 120/65; PULSE 103; TEMP 36.9; O2SAT 94
== END 2025-05-22 02:28 | disposition home or self-care (01) ==
PROVIDERS: Emergency Provider Internal Medicine
DX: J10.1 Influenza due to other identified influenza virus with other respiratory manifestations (principal); N39.0 Urinary tract infection, site not specified; R50.9 Fever, unspecified
CPT/HCPCS: 71045; 80053; 81001; 83605; 87070; 87086; 87088; 87186; 87804; 87811; 87880; 96365; 99284; J0696